=== PATIENT | male | born 1980 | race Caucasian/White ===

== ENCOUNTER 2023-07-04 07:46 | Emergency (ER) | payer MEDICAID ==
[~2023-07-04] VITALS: Ht 175.3 cm; Wt 72.8 kg
--- NOTE | 2023-07-04 09:09 | NUR ---
MSE COMPLETED BY PRIMO DUARTE
[2023-07-04 09:20] VITALS: BP 127/75; PULSE 87; RESP 18; TEMP 98.9; O2SAT 99
--- NOTE | 2023-07-04 13:31 | NUR ---
I AGREE WITH THE ASSESSMENT PER Manoj GOTTLIEB LVN
== END 2023-07-04 13:32 | disposition home or self-care (01) ==
LOC: ER 07:47
DX: R05.9 Cough, unspecified (principal); R53.81 Other malaise; R09.89 Other specified symptoms and signs involving the circulatory and respiratory systems; F17.220 Nicotine dependence, chewing tobacco, uncomplicated
CPT/HCPCS: 71045; 99283

== ENCOUNTER 2023-08-13 11:27 | Emergency (ER) | payer MEDICAID ==
[~2023-08-13] VITALS: Ht 177.8 cm; Wt 81.8 kg
[2023-08-13 11:39] VITALS: BP 143/76; PULSE 76; TEMP 97.3; O2SAT 99
[2023-08-13] MEDS ORDERED: ketorolac trometh. 30mg/ml inj. IM ONE (11:45)
[2023-08-13 11:59] VITALS: RESP 18
[2023-08-13] MEDS ORDERED: PENI500T2 PO (11:59)
[2023-08-13] MEDS ORDERED: IBUP-1984 PO (11:59)
== END 2023-08-13 16:41 | disposition home or self-care (01) ==
LOC: ER 11:27
DX: K04.7 Periapical abscess without sinus (principal); K08.89 Other specified disorders of teeth and supporting structures; F17.200 Nicotine dependence, unspecified, uncomplicated
CPT/HCPCS: 96372; 99283; J1885